=== PATIENT | female | born 1980 | race African-American/Black ===

== ENCOUNTER 2016-08-09 01:34 | Inpatient (IN) | payer BC, MEDICAID ==
[2016-08-08 15:04] LABS: Hematocrit 38 % (35-47); Hemoglobin 12.4 g/dl (12.0-16.0); Mean Corpuscular HGB Conc 33 g/dl (31-36); Mean Corpuscular Hemoglobin 26 pg (27-31); Mean Corpuscular Volume 80 fL (80-97); Mean Platelet Volume 9 um3 (7.4-10.4); Red Blood Count 4.72 10^6/ul (4.0-5.4); Red Cell Distribution Width 14 % (10.5-15); White Blood Count 10.1 10^3/ul (3.5-10.8)
[2016-08-09] MEDS ORDERED: ceFOXitin 2 GM IVPREMIX* 2 GM/50 ML BAG IVPB ONE (03:39)
[2016-08-09] MEDS ORDERED: Buffered Lidocaine 1% SYRIN* 3 ML/SYR SYRINGE INTRADERM ONE (06:00)
[2016-08-09] MEDS ORDERED: Sodium Citrate/Citric Acid* 15 ML UDC PO ONE ×2 (06:00→07:00)
[2016-08-09] MEDS ORDERED: Morphine PF AMP (0.5MG/ML)* 5 MG/10 ML AMP ONE (07:41)
[2016-08-09] MEDS ORDERED: OXYTOCIN* 10 UNITS/ML 1 ML VIAL ONE (07:41)
[2016-08-09] MEDS ORDERED: PROCHLORPERAZINE INJ 5 MG/ML 2 ML VIAL IV PRN (07:47)
[2016-08-09] MEDS ORDERED: oxyCODONE TAB* 5 MG TAB PO PRN ×2 (07:47→08:51)
[2016-08-09] MEDS ORDERED: Acetaminophen IV 1GM/100ML * 100 ML IVPB ONE (07:47)
[2016-08-09] MEDS ORDERED: fentaNYL* 50 MCG/ML 2 ML VIAL (100 MCG VIAL) IV PRN (07:47)
[2016-08-09] MEDS ORDERED: Phenylephrine IV* 40 MCG/ML 10 ML SYRINGE ONE (08:28)
[2016-08-09] MEDS ORDERED: Ondansetron INJ* 2 MG/ML VIAL ONE (08:44)
[2016-08-09] MEDS ORDERED: Dexamethasone IV* 4 MG/ML 1 ML (4 MG) ONE (08:44)
[2016-08-09] MEDS ORDERED: Scopolamine 1.5 mg* PATCH TRANSDERM PRN (08:51)
[2016-08-09] MEDS ORDERED: Nalbuphine* 20 MG/ML 1 ML VIAL IV PRN (08:51)
[2016-08-09] MEDS ORDERED: Ondansetron INJ* 2 MG/ML VIAL IV PRN (08:51)
[2016-08-09] MEDS ORDERED: Naloxone* 0.4 MG/ML 1 ML VIAL IV PRN (08:51)
[2016-08-09] MEDS ORDERED: Ketorolac INJ* 30 MG/ML 1 ML VIAL IV SCH (09:30)
[2016-08-09] MEDS ORDERED: Dibucaine 1% 28.35 GM TUBE PR PRN (09:35)
[2016-08-09] MEDS ORDERED: Acetaminophen TAB* 325 MG PO PRN (09:35)
[2016-08-09] MEDS ORDERED: Witch Hazel PAD* JAR TOPICAL PRN (09:35)
[2016-08-09] MEDS ORDERED: Glycerin ADULT SUPP PR PRN (09:35)
[2016-08-09] MEDS ORDERED: Ibuprofen TAB* 600 MG PO PRN (09:35)
[2016-08-09] MEDS ORDERED: ceFOXitin(*) 1 GM in NS 0.9% 50 ML* 50 ML IVPB ONE (09:38)
[2016-08-09] MEDS: Simethicone CHEW TAB* 80 MG PO SCH ×3 (12:30→21:27)
[2016-08-09] MEDS: Docusate CAP* 100 MG PO SCH ×2 (14:01→21:28)
[2016-08-09] MEDS: oxyCODONE/Acetamin 5/325 MG* TAB PO PRN ×2 (14:58→22:34)
[2016-08-09] MEDS: Ketorolac INJ* 30 MG/ML 1 ML VIAL IV SCH (18:56)
[2016-08-09] MEDS: Acetaminophen TAB* 325 MG PO SCH (18:57)
[2016-08-10] MEDS: Acetaminophen TAB* 325 MG PO SCH (02:46)
[2016-08-10] MEDS: Ketorolac INJ* 30 MG/ML 1 ML VIAL IV SCH (02:47)
[2016-08-10 06:51] LABS: Hematocrit 33 % (35-47); Hemoglobin 10.9 g/dl (12.0-16.0); Mean Corpuscular HGB Conc 33 g/dl (31-36); Mean Corpuscular Hemoglobin 26 pg (27-31); Mean Corpuscular Volume 80 fL (80-97); Mean Platelet Volume 9 um3 (7.4-10.4); Red Blood Count 4.15 10^6/ul (4.0-5.4); Red Cell Distribution Width 14 % (10.5-15); White Blood Count 15.5 10^3/ul (3.5-10.8)
[2016-08-10] MEDS: oxyCODONE/Acetamin 5/325 MG* TAB PO PRN ×4 (08:00→20:47)
[2016-08-10] MEDS ORDERED: Ibuprofen TAB* 600 MG PO PRN (09:00)
[2016-08-10] MEDS ORDERED: Ferrous Gluconate TAB* 324 MG TAB PO SCH (09:00)
[2016-08-10] MEDS ORDERED: Acetaminophen TAB* 325 MG PO PRN (09:00)
[2016-08-10] MEDS: Docusate CAP* 100 MG PO SCH ×3 (09:11→20:47)
[2016-08-10] MEDS: Simethicone CHEW TAB* 80 MG PO SCH ×4 (09:11→20:47)
[2016-08-10] MEDS: Levothyroxine TAB* 25 MCG TAB PO SCH (11:00)
[2016-08-10] MEDS: Ibuprofen TAB* 600 MG PO SCH ×2 (15:06→20:47)
[2016-08-10] MEDS: Zolpidem TAB* 5 MG PO PRN (22:23)
[2016-08-11] MEDS: oxyCODONE/Acetamin 5/325 MG* TAB PO PRN ×8 (02:19→18:04)
[2016-08-11] MEDS: Ibuprofen TAB* 600 MG PO SCH ×4 (03:15→20:59)
[2016-08-11] MEDS: Levothyroxine TAB* 25 MCG TAB PO SCH (06:20)
[2016-08-11] MEDS: Docusate CAP* 100 MG PO SCH ×3 (09:11→20:59)
[2016-08-11] MEDS: Simethicone CHEW TAB* 80 MG PO SCH ×4 (09:12→20:59)
--- NOTE | 2016-08-11 21:53 | OP ---
CC: Amna Blancas MD OPERATIVE REPORT: DATE OF OPERATION: 08/09/16 DATE OF : 82 SURGEON: Derrell Eli MD PREPARATOR: Amna Blancas MD ANESTHESIA: Spinal. PRE-OP DIAGNOSES: 1. at 39 weeks. 2. Morbid obesity with a BMI of 40. 3. macrosomia. POST-OP DIAGNOSES: 1. at 39 weeks. 2. Morbid obesity with a BMI of 40. 3. macrosomia. OPERATIVE PROCEDURE: Primary low transverse section with vacuum assistance of delivery of the head. ESTIMATED BLOOD LOSS: 400 cc. SPECIMEN: Sent to pathology was cord blood. IV FLUID: She received 3500 cc of IV crystalloid fluid. URINE OUTPUT: Clear. FINDINGS: Delivery of a viable male infant over clear fluid with a nuchal cord x1 weighing 8 pounds 11 ounces with 's of 8 and 9. The placenta was within normal limits with 3-vessel cord noted. The uterus, adnexa, bowel and bladder were all within normal limits. There were no complications. DESCRIPTION OF PROCEDURE: The patient was taken to the operating room where she was identified. Jesus muller was placed on the operating table where a spinal anesthetic was obtained without difficulty. She was then placed in the supine position with a leftward tilt, prepped and draped in a normal sterile fashion. A Pfannenstiel skin incision was made with a knife and carried through to the underlying l emperatriz of fascia. The fascia was then nicked in the midline and extended laterally with curved Christianson s cissors. The fascia was then grasped superiorly and inferiorly with Monserrat clamps and dissected off sharply from the rectum muscle. The rectus muscle was then in the midline bluntly. Kristel toneum was identified, grasped with pickups, entered sharply with Metzenbaum scissors, extended supe riorly and inferiorly sharply. At this point, a [place] retractor was inserted into the patient's abdomen and we then proceeded to make an incision at the lower uterine segment. This was extended laterally with bandage scissors. The amniotic sac was ruptured. The infant's head was then grasped , brought up to the incision and vacuum was applied to the 's head and we were able to deliver the baby's head atraumatically. Nuchal cord x1 was reduced. The rest of the infant's body was the n delivered. The cord was clamped and cut, and the was handed off to the [facility] n. Cord bloods were obtained. The placenta was removed manually. The uterus was then exteriorized . The uterus was then cleared of all clots and debris using moist laparotomy sponges. The uterine incision was then closed in situ using 0 Polysorb suture in a running locked fashion with a second i mbricating layer of 0 Polysorb suture, with good hemostasis noted. The patient's abdomen was irriga tj with normal saline. This was suctioned. The gutters were then cleared of all clots and debris using moist laparotomy sponges. The sponges were removed from the patient's abdomen. The [place] retractor was removed from the patient's abdomen, and at this point, the peritoneum was then closed using 3-0 Polysorb sutures. The fascia was closed using 0 Polysorb suture in a running fashion, an d the Esequiel's layer were closed using 3-0 Polysorb suture with interrupted stitches, and the skin w as closed with 4-0 Monocryl stitch subcuticularly. The patient tolerated the procedure well. Spong e, lap, needle counts were correct x2. She was then transferred to recovery room area in stable con dition. [id number]/[facility] #: [id number]
[2016-08-11] MEDS: Zolpidem TAB* 5 MG PO PRN (23:11)
[2016-08-12] MEDS: Ibuprofen TAB* 600 MG PO SCH ×2 (03:03→08:13)
[2016-08-12] MEDS: oxyCODONE/Acetamin 5/325 MG* TAB PO PRN (03:05)
[2016-08-12] MEDS: Levothyroxine TAB* 25 MCG TAB PO SCH (06:26)
[2016-08-12 07:33] VITALS: BP 133/75
[2016-08-12] MEDS: Docusate CAP* 100 MG PO SCH (08:13)
[2016-08-12] MEDS: Simethicone CHEW TAB* 80 MG PO SCH (08:13)
[2016-08-12] MEDS ORDERED: Scopolomine PATCH Remove* 1 NOTE MISC PATCH OFF PRN (08:51)
== END 2016-08-12 10:10 | disposition home or self-care (01) | DRG 540 ==
LOC: MCHOB 01:34 → UNDOADMIN 01:34 → MCHOB 06:00
PROVIDERS: ADMIT Obstetrics & Gynecology; ATTEND Obstetrics & Gynecology
PROC: 10D00Z1 Extraction of Products of Conception, Low, Open Approach (ICD-10-PCS; principal; 2016-08-09 07:45)
DX: O36.63X0 Maternal care for excessive fetal growth, third trimester, not applicable or unspecified (principal); Z68.41 Body mass index [BMI] 40.0-44.9, adult; O99.214 Obesity complicating childbirth; E66.01 Morbid (severe) obesity due to excess calories; O69.9XX0 Labor and delivery complicated by cord complication, unspecified, not applicable or unspecified; Z3A.39 39 weeks gestation of pregnancy; Z37.0 Single live birth
CPT/HCPCS: 36415; 85025; 86850; 86900; 86901; A9270-GY; J0694; J1100; J1885; J2405; J2590

== ENCOUNTER 2016-08-15 19:13 | Emergency (ER) | payer BC, MEDICAID ==
[2016-08-15 21:15] LABS: Hematocrit 33 % (35-47); Hemoglobin 10.8 g/dl (12.0-16.0); Mean Corpuscular HGB Conc 33 g/dl (31-36); Mean Corpuscular Hemoglobin 26 pg (27-31); Mean Corpuscular Volume 80 fL (80-97); Mean Platelet Volume 8 um3 (7.4-10.4); Red Blood Count 4.14 10^6/ul (4.0-5.4); Red Cell Distribution Width 14 % (10.5-15); White Blood Count 7.9 10^3/ul (3.5-10.8)
[2016-08-15 21:33] LABS: Albumin 3.1 g/dL (3.2-5.2); BUN/Creatinine Ratio 10.4 (8-20); Calcium 8.4 mg/dL (8.6-10.3); EGFR African American 128.8 (>60); EGFR Non-African American 100.2 (>60); Globulin 3.2 g/dL (2-4); Potassium 3.9 mmol/L (3.5-5.0); Total Bilirubin 0.8 mg/dL (0.2-1.0); Total Protein 6.3 g/dL (6.4-8.9)
[2016-08-15] MEDS ORDERED: Iohexol 350* (CONTRAST) 500 ML MDV IV ONE (21:37)
--- NOTE | 2016-08-15 22:25 | RAD ---
INDICATION: Shortness of breath COMPARISON: Multiple previous CTA of the chest, most recently dated July 20, 2008 TECHNIQUE: Axial source images were acquired following the administration of 86 mL Omnipaque [address] angiographic technique. Coronal and sagittal reconstructed images were constructed and reviewed. FINDINGS: There there are no filling defects in the pulmonary arteries to indicate acute pulmonary embolic disease. There are no focal infiltrates or effusions. There are no pulmonary parenchymal masses. The heart is normal in size. There is no evidence of pericardial effusion. There is no evidence of aortic aneurysm or dissection. There is no mediastinal, hilar, or axillary lymphadenopathy. The visualized osseous structures appear normal. Limited views of the upper abdomen show no abnormalities. IMPRESSION: Normal CT of the chest without evidence of pulmonary embolism.
[2016-08-15 22:32] VITALS: BP 140/79
[2016-08-15 22:44] LABS: Urine Bacteria Absent (Absent); Urine Bilirubin Negative (Negative); Urine Glucose Negative (Negative); Urine Nitrite Negative (Negative)
--- NOTE | 2016-08-15 23:32 | ED ---
Kathie Celis Erika, scribed for Jm Blancas MD on 08/15/16 at 2112 . Shortness of Breath - HPI Summary HPI Summary: Patient is a 36-year-old female presenting to the ED with a CC of SOB. Patient reports she had a 6 days ago. A few days ago, patient developed chest congestion. Today, she has had increased SOB. Patient states SOB is present even at rest. Associated symptoms include bilateral pedal edema. Patient denies fever. A0. - History of Current Complaint Chief Complaint: EDShortnessOfBreath Time Seen by Provider: 08/15/16 20:32 Hx Obtained From: Patient Onset/Duration: Gradual Onset, Lasting Days, Worse Since - Today Timing: Constant Current Severity: Moderate Dyspnea At: Rest Alleviating Factors: Nothing Associated Signs & Symptoms: Calf Pain/Swelling - Allergy/Home Medications Allergies/Adverse Reactions: Allergies Allergy/AdvReac Type Severity Reaction Status Date / Time No Known Allergies Allergy Verified 01/01/16 12:54 PMH/Surg Hx/FS Hx/Imm Hx Endocrine/Hematology History: Reports: Hx Thyroid Disease - hypothyroid Respiratory History: Reports: Hx Asthma Psychiatric History: Reports: Hx Anxiety - Surgical History Surgery Procedure, Year, and Place: August 2016 Infectious Disease History: No Infectious Disease History: Denies: Traveled Outside the [place] in Last 30 Days - Family History Family History: Denies FHx gallbladder disease - Social History Lives: With Family Alcohol Use: None Hx Substance Use: No Substance Use Type: Reports: None Hx Tobacco Use: Yes Smoking Status (MU): Former Smoker Review of Systems Negative: Fever Cardiovascular: Other - chest congestion Positive: Shortness Of Breath Positive: Edema - bilateral pedal All Other Systems Reviewed And Are Negative: Yes Physical Exam Triage Information Reviewed: Yes Vital Signs On Initial Exam: Initial Vitals Temp Pulse Resp BP Pulse Ox 98.6 F 65 16 158/78 100 08/15/16 19:14 08/15/16 19:14 08/15/16 19:14 08/15/16 19:14 08/15/16 19:14 Vital Signs Reviewed: Yes Appearance: Positive: Well-Appearing, No Pain Distress, Obese Skin: Positive: Warm, Skin Color Reflects Adequate Perfusion, Dry Head/Face: Positive: Normal Head/Face Inspection Eyes: Positive: Normal ENT: Positive: Normal ENT inspection Neck: Positive: Supple, Nontender Respiratory/Lung Sounds: Positive: Clear to Auscultation, Breath Sounds Present Cardiovascular: Positive: RRR Abdomen Description: Positive: Nontender, Soft Bowel Sounds: Positive: Present Musculoskeletal: Positive: Other - Bilateral pedal edema Neurological: Positive: Normal Psychiatric: Positive: Affect/Mood Appropriate - West Coma Scale Coma Scale Total: 15 Diagnostics - Vital Signs Vital Signs Temp Pulse Resp BP Pulse Ox 08/15/16 19:39 60 15 155/87 100 08/15/16 19:17 98.6 F 65 16 158/78 100 08/15/16 19:14 98.6 F 65 16 158/78 100 - Laboratory Lab Results: Lab Results 08/15/16 08/15/16 08/15/16 Range/Units 21:03 21:03 22:30 WBC 7.9 (3.5-10.8) 10^3/ul RBC 4.14 (4.0-5.4) 10^6/ul Hgb 10.8 L (12.0-16.0) g/dl Hct 33 L (35-47) % MCV 80 (80-97) fL MCH 26 L (27-31) pg MCHC 33 (31-36) g/dl RDW 14 (10.5-15) % Plt Count 294 (150-450) 10^3/ul MPV 8 (7.4-10.4) um3 Neut % (Auto) 61.1 (38-83) % Lymph % (Auto) 28.6 (25-47) % [place] % (Auto) 7.8 (1-9) % Eos % (Auto) 1.9 (0-6) % Baso % (Auto) 0.6 (0-2) % Absolute Neuts (auto) 4.8 (1.5-7.7) 10^3/ul Absolute Lymphs (auto) 2.3 (1.0-4.8) 10^3/ul Absolute Monos (auto) 0.6 (0-0.8) 10^3/ul Absolute Eos (auto) 0.2 (0-0.6) 10^3/ul Absolute Basos (auto) 0 (0-0.2) 10^3/ul Absolute Nucleated RBC 0 10^3/ul Nucleated RBC % 0 Sodium 138 (133-145) mmol/L Potassium 3.9 (3.5-5.0) mmol/L Chloride 107 (101-111) mmol/L Carbon Dioxide 24 (22-32) mmol/L Anion Gap 7 (2-11) mmol/L BUN 7 (6-24) mg/dL Creatinine 0.67 (0.51-0.95) mg/dL Est GFR ( Amer) 128.8 (>60) Est GFR (Non-Af Amer) 100.2 (>60) BUN/Creatinine Ratio 10.4 (8-20) Glucose 79 (70-100) mg/dL Calcium 8.4 L (8.6-10.3) mg/dL Total Bilirubin 0.80 (0.2-1.0) mg/dL AST 18 (13-39) U/L ALT 17 (7-52) U/L Alkaline Phosphatase 151 H (34-104) U/L Total Protein 6.3 L (6.4-8.9) g/dL Albumin 3.1 L (3.2-5.2) g/dL Globulin 3.2 (2-4) g/dL Albumin/Globulin Ratio 1.0 (1-3) Urine Color Yellow Urine Appearance Clear Urine pH 6.0 (5-9) Ur Specific [place] 1.036 H (1.010-1.030) Urine Protein Negative (Negative) Urine Ketones Negative (Negative) Urine Blood 3+ H (Negative) Urine Nitrate Negative (Negative) Urine Bilirubin Negative (Negative) Urine Urobilinogen Negative (Negative) Ur Leukocyte Esterase 3+ H (Negative) Urine WBC (Auto) 3+(>20/hpf) H (Absent) Urine RBC (Auto) 3+(>10/hpf) H (Absent) Ur Squamous Epith Cells Present H (Absent) Ur Transition Epith Cell Present H (Absent) Urine Bacteria Absent (Absent) Urine Glucose Negative (Negative) Result Diagrams: 08/15/16 21:03 08/15/16 21:03 Lab Statement: Any lab studies that have been ordered have been reviewed, and results considered in the medical decision making process. - CT CTA Chest CT Interpretation Completed By: Radiologist - IMPRESSION: Normal CT of the chest without evidence of pulmonary embolism. Re-Evaluation - Re-Evaluation First Eval Re-Evaluation Time: 22:51 Comment: Discussed lab and imaging results with patient. Will be road tested Course/Dx - Course Course Of Treatment: Ms. Hung presented with exertional SOB 6 days post C- Section. She doesn't have a PE or pneumonia or eclampsia although she has a little peripheral edema. I'm not sure about her SOB but she is anemic and with the extra fluid and recent delivery that may explain it all. - Diagnoses Provider Diagnoses: Dyspnea, Peripheral edema Discharge - Discharge Plan Condition: Stable Disposition: HOME Patient Education Materials: Anemia (ED), Dyspnea (ED) Referrals: [facility] [Outside] Additional Instructions: Please follow up with your PCP. The documentation as recorded by the Kathie mathews Erika accurately reflects the service I personally performed and the decisions made by me, Jm Blancas MD.
== END 2016-08-15 23:36 | disposition home or self-care (01) ==
LOC: ED 19:13
DX: R06.00 Dyspnea, unspecified (principal); R60.9 Edema, unspecified; Z87.891 Personal history of nicotine dependence; E03.9 Hypothyroidism, unspecified; J45.909 Unspecified asthma, uncomplicated; F41.9 Anxiety disorder, unspecified
CPT/HCPCS: 36415; 71275; 80053; 81003; 81015; 85025; 87086; 99282; 99283; Q9967

== ENCOUNTER 2017-06-17 09:26 | Emergency (ER) | payer BC, MEDICAID, OTHER ==
[2017-06-17] MEDS ORDERED: NS 0.9% 1000 ML* 1,000 ML IV ONE (11:11)
[2017-06-17 11:25] LABS: ABS Basophils 0.2 10^3/ul (0-0.2); ABS Eosinophils 0.1 10^3/ul (0-0.6); ABS Monocytes 0.6 10^3/ul (0-0.8); ABS Neutrophils 9.2 10^3/ul (1.5-7.7); ABS Nucleated RBC 0 10^3/ul; Eosinophil % 0.6 % (0-6); Hematocrit 40 % (35-47); Hemoglobin 12.7 g/dl (12.0-16.0); Lymphocyte % 16.4 % (25-47); Mean Corpuscular HGB Conc 32 g/dl (31-36); Mean Corpuscular Hemoglobin 25 pg (27-31); Mean Corpuscular Volume 78 fL (80-97); Mean Platelet Volume 9 um3 (7.4-10.4); Nucleated Red Blood Cells % 0.1; Platelet Count 278 10^3/ul (150-450); Red Blood Count 5.11 10^6/ul (4.0-5.4); Red Cell Distribution Width 15 % (10.5-15); White Blood Count 12.1 10^3/ul (3.5-10.8)
[2017-06-17 11:39] LABS: EGFR Non-African American 86.6 (>60)
--- NOTE | 2017-06-17 11:50 | RAD ---
INDICATION: Productive cough. History of tobacco use. COMPARISON: August 15, 2016 CT. August 24, 2008 chest radiograph. TECHNIQUE: Dual energy PA and routine lateral views of the chest were obtained. REPORT: Elevated lung volumes. Clear lungs and pleural spaces. Negative for pneumothorax. The heart, pulmonary vasculature, and mediastinal contours are unremarkable. Gallbladder fossa level surgical clips. Unremarkable osseous structures and soft tissue contours. IMPRESSION: No evidence for pneumonia. Elevated lung volumes suggest potential obstructive lung disease..
[2017-06-17 13:38] VITALS: BP 120/60
--- NOTE | 2017-06-18 10:48 | ED ---
Yuliana Celis Edward, scribed for Lalo Kendrick MD on 06/17/17 at 1033 . Respiratory - HPI Summary HPI Summary: 36 y/o female presents to the ED c/o chest congestion and a productive cough for around 4 days, not alleviated by anything. Associated sx: body aches, chills , subjective fever. Denies sick contact. - History of Current Complaint Chief Complaint: EDFluSymptoms Stated Complaint: SOB/CHEST TIGHTNESS Time Seen by Provider: 06/17/17 10:20 Onset/Duration: Lasting Days Pain Intensity: 6 Character: Cough (Productive) Associated Signs and Symptoms: Fever, Chest Pain - congestion, Chills, Nasal Congestion - rhinorrhea - Allergy/Home Medications Allergies/Adverse Reactions: Allergies Allergy/AdvReac Type Severity Reaction Status Date / Time No Known Allergies Allergy Verified 01/01/16 12:54 PMH/Surg Hx/FS Hx/Imm Hx Previously Healthy: No Endocrine/Hematology History: Reports: Hx Thyroid Disease - hypothyroid Respiratory History: Reports: Hx Asthma Psychiatric History: Reports: Hx Anxiety - Surgical History Surgery Procedure, Year, and Place: August 2016 Infectious Disease History: No Infectious Disease History: Denies: Traveled Outside the [place] in Last 30 Days - Family History Family History: Denies FHx gallbladder disease - Social History Alcohol Use: None Hx Substance Use: No Substance Use Type: Reports: None Hx Tobacco Use: Yes Smoking Status (MU): Former Smoker Review of Systems Positive: Fever - hudson, Chills Eyes: Negative Positive: Nasal Discharge - rhinorrhea Positive: Chest Pain - chest congestion Positive: Cough Positive: Vomiting Genitourinary: Negative Positive: Myalgia - body aches Skin: Negative Neurological: Negative Psychological: Normal All Other Systems Reviewed And Are Negative: Yes Physical Exam - Summary Physical Exam Summary: VITAL SIGNS: Reviewed. GENERAL: Patient is a well-developed and nourished female who is lying comfortable in the stretcher. Patient is not in any acute respiratory distress. HEAD AND FACE: No signs of trauma. No ecchymosis, hematomas or skull depressions. No sinus tenderness. EYES: PERRLA, EOMI x 2, No injected conjunctiva, no nystagmus. EARS: Hearing grossly intact. Ear canals and tympanic membranes are within normal limits. ENT: Pharyngeal erythema. Runny nose. NECK: Supple, trachea is midline, no adenopathy, no JVD, no carotid bruit, no c- spine tenderness, neck with full ROM. CHEST: Symmetric, no tenderness at palpation LUNGS: Clear to auscultation bilaterally. No wheezing or crackles. CVS: Regular rate and rhythm, S1 and S2 present, no murmurs or gallops appreciated. ABDOMEN: Soft, non-tender. No signs of distention. No rebound no guarding, and no masses palpated. Bowel sounds are normal. EXTREMITIES: FROM in all major joints, no edema, no cyanosis or clubbing. NEURO: Alert and oriented x 3. No acute neurological deficits. Speech is normal and follows commands. SKIN: Dry and warm Triage Information Reviewed: Yes Vital Signs On Initial Exam: Initial Vitals Temp Pulse Resp BP Pulse Ox 97.0 F 98 16 131/80 98 06/17/17 09:30 06/17/17 09:30 06/17/17 09:30 06/17/17 09:30 06/17/17 09:30 Vital Signs Reviewed: Yes Diagnostics - Vital Signs Vital Signs Temp Pulse Resp BP Pulse Ox 06/17/17 09:30 97.0 F 98 16 131/80 98 - Laboratory Lab Results: Lab Results 06/17/17 06/17/17 06/17/17 Range/Units 10:40 11:19 11:19 WBC 12.1 H (3.5-10.8) 10^3/ul RBC 5.11 (4.0-5.4) 10^6/ul Hgb 12.7 (12.0-16.0) g/dl Hct 40 (35-47) % MCV 78 L (80-97) fL MCH 25 L (27-31) pg MCHC 32 (31-36) g/dl RDW 15 (10.5-15) % Plt Count 278 (150-450) 10^3/ul MPV 9 (7.4-10.4) um3 Neut % (Auto) 76.0 (38-83) % Lymph % (Auto) 16.4 L (25-47) % [place] % (Auto) 5.3 (1-9) % Eos % (Auto) 0.6 (0-6) % Baso % (Auto) 1.7 (0-2) % Absolute Neuts (auto) 9.2 H (1.5-7.7) 10^3/ul Absolute Lymphs (auto) 2.0 (1.0-4.8) 10^3/ul Absolute Monos (auto) 0.6 (0-0.8) 10^3/ul Absolute Eos (auto) 0.1 (0-0.6) 10^3/ul Absolute Basos (auto) 0.2 (0-0.2) 10^3/ul Absolute Nucleated RBC 0 10^3/ul Nucleated RBC % 0.1 Sodium 135 (133-145) mmol/L Potassium 4.5 (3.5-5.0) mmol/L Chloride 105 (101-111) mmol/L Carbon Dioxide 25 (22-32) mmol/L Anion Gap 5 (2-11) mmol/L BUN 8 (6-24) mg/dL Creatinine 0.76 (0.51-0.95) mg/dL Est GFR ( Amer) 111.4 (>60) Est GFR (Non-Af Amer) 86.6 (>60) BUN/Creatinine Ratio 10.5 (8-20) Glucose 95 (70-100) mg/dL Calcium 8.7 (8.6-10.3) mg/dL Total Bilirubin 1.20 H (0.2-1.0) mg/dL AST 17 (13-39) U/L ALT 15 (7-52) U/L Alkaline Phosphatase 55 (34-104) U/L C-Reactive Protein 20.41 H (< 5.00) mg/L Total Protein 7.1 (6.4-8.9) g/dL Albumin 3.9 (3.2-5.2) g/dL Globulin 3.2 (2-4) g/dL Albumin/Globulin Ratio 1.2 (1-3) Influenza A (Rapid) Negative (Negative) Influenza B (Rapid) Negative (Negative) Group A Strep Rapid (Negative) 06/17/17 Range/Units 12:52 WBC (3.5-10.8) 10^3/ul RBC (4.0-5.4) 10^6/ul Hgb (12.0-16.0) g/dl Hct (35-47) % MCV (80-97) fL MCH (27-31) pg MCHC (31-36) g/dl RDW (10.5-15) % Plt Count (150-450) 10^3/ul MPV (7.4-10.4) um3 Neut % (Auto) (38-83) % Lymph % (Auto) (25-47) % [place] % (Auto) (1-9) % Eos % (Auto) (0-6) % Baso % (Auto) (0-2) % Absolute Neuts (auto) (1.5-7.7) 10^3/ul Absolute Lymphs (auto) (1.0-4.8) 10^3/ul Absolute Monos (auto) (0-0.8) 10^3/ul Absolute Eos (auto) (0-0.6) 10^3/ul Absolute Basos (auto) (0-0.2) 10^3/ul Absolute Nucleated RBC 10^3/ul Nucleated RBC % Sodium (133-145) mmol/L Potassium (3.5-5.0) mmol/L Chloride (101-111) mmol/L Carbon Dioxide (22-32) mmol/L Anion Gap (2-11) mmol/L BUN (6-24) mg/dL Creatinine (0.51-0.95) mg/dL Est GFR ( Amer) (>60) Est GFR (Non-Af Amer) (>60) BUN/Creatinine Ratio (8-20) Glucose (70-100) mg/dL Calcium (8.6-10.3) mg/dL Total Bilirubin (0.2-1.0) mg/dL AST (13-39) U/L ALT (7-52) U/L Alkaline Phosphatase (34-104) U/L C-Reactive Protein (< 5.00) mg/L Total Protein (6.4-8.9) g/dL Albumin (3.2-5.2) g/dL Globulin (2-4) g/dL Albumin/Globulin Ratio (1-3) Influenza A (Rapid) (Negative) Influenza B (Rapid) (Negative) Group A Strep Rapid Negative (Negative) Result Diagrams: 06/17/17 11:19 06/17/17 11:19 Lab Statement: Any lab studies that have been ordered have been reviewed, and results considered in the medical decision making process. - Radiology CXR Xray Interpretation: Positive (See Comments) - No evidence for pneumonia. Elevated lung volumes suggest potential obstructive lung disease.. Radiology Interpretation Completed By: Radiologist - ED PHYSICIAN REVIEWS AND AGREES Disposition - Course Assessment/Plan: 36 y/o female presents to the ED c/o chest congestion and a productive cough for around 4 days, not alleviated by anything. Associated sx: body aches, chills, subjective fever. Denies sick contact. CXR SHOWS No evidence for pneumonia. Elevated lung volumes suggest potential obstructive lung disease. Test results without significant abnormalities except wbc 12.1, crp 20.4. influenza A&B and strep negative. Pt has a productive cough; therefore I think the pt is dealing with airway pna vs bronchitis. Therefore the pt was given azithromyacin and hydrated orally.At this time the pt has no N/ V, feels better and will be d/c home with f/u pcp. Pt instructed to return for worsening sx. I discussed all the findings and test results with the patient. Patient was instructed to return to the emergency room immediately if any of the symptoms return or worsens. Plan of care was discussed with the patient and understands and agrees. All questions were answered at patient satisfaction. There were no further complaints or concerns. Lung exam before discharge: CTA B /L. Good air exchange. No wheezing or crackles heard. CVS: S1 and S2 present. No murmurs appreciated. Patient is alert and oriented x 3. Patient is hemodynamically stable. Patient will be discharged home with follow up PCP in the next 2-3 days - Diagnoses Provider Diagnoses: Bronchitis Discharge - Discharge Plan Condition: Stable Disposition: HOME Prescriptions: Azithromycin TAB* [Zithromax TAB (Z-GADIEL) 250 mg #6 tabs] 2 tab PO .TODAY, THEN 1 DAILY #1 gadiel Patient Education Materials: Acute Bronchitis (ED) Forms: *Work Release Referrals: Franko Izaguirre MD [Primary Care Provider] - 4 Days (PLEASE F/U IN 3-5 DAYS) The documentation as recorded by the Yuliana mathews Edward accurately reflects the service I personally performed and the decisions made by me, Lalo Kendrick MD.
== END 2017-06-17 13:36 | disposition home or self-care (01) ==
LOC: ED 09:26
DX: J40 Bronchitis, not specified as acute or chronic (principal); R07.9 Chest pain, unspecified; R50.9 Fever, unspecified; R05 Cough; R11.10 Vomiting, unspecified; Z87.891 Personal history of nicotine dependence
CPT/HCPCS: 36415; 71046; 80053; 85025; 86140; 87502; 87651; 96360; 99283

== ENCOUNTER 2021-10-28 06:06 | Inpatient (IN) ==
[~2021-10-28 06:06] MED LIST: Buffered Lidocaine 1% SYRIN 1 ml INTRADERM ONE; Lactated Ringers 1000 ml BAG 1,000 ML IV SCH
[2021-10-28] MEDS ORDERED: ceFOXitin 2 GM PREMIX 50 ML IVPB ONE (07:00)
[2021-10-28 07:32] LABS: Hematocrit 32 % (35-47); Hemoglobin 10.3 g/dL (12.0-16.0); Mean Corpuscular HGB Conc 32 g/dL (31-36); Mean Corpuscular Hemoglobin 24 pg (27-31); Mean Corpuscular Volume 74 fL (80-97); Mean Platelet Volume 8.1 fL (7.4-10.4); Platelet Count 229 10^3/uL (150-450); Red Blood Count 4.36 10^6 /uL (3.70-4.87); Red Cell Distribution Width 23 % (10-15)
[2021-10-28] MEDS ORDERED: Phenylephrine IV 10 MG/ML 1 ml VIAL ONE (07:44)
[2021-10-28] MEDS ORDERED: fentaNYL 100 mcg/2 ml 50 MCG/ML VIAL ONE (07:46)
[2021-10-28] MEDS ORDERED: Morphine PF AMP (0.5MG/ML) 5 MG/10 ML AMP ONE (07:46)
[2021-10-28] MEDS ORDERED: Oxytocin 10 UNITS/ML 1 ML VIAL ONE (08:50)
[2021-10-28] MEDS ORDERED: Sterile Water for Inj 10 ML ONE (08:50)
[2021-10-28 09:10] LABS: Urine Appearance Clear; Urine Bilirubin Negative (Negative); Urine Blood Negative (Negative); Urine Color Straw; Urine Glucose Negative (Negative); Urine Ketones Negative (Negative); Urine Nitrite Negative (Negative); Urine Protein Negative (Negative); Urine Specific Gravity 1.004 (1.002-1.030); Urine Urobilinogen Negative (Negative)
[2021-10-28] MEDS ORDERED: Prochlorperazine 5 mg/ml 2 ml VIAL (10 mg) IV PRN (09:59)
[2021-10-28] MEDS ORDERED: Naloxone 0.4 mg VIAL 0.4 mg/ml 1 ml VIAL IV PRN (09:59)
[2021-10-28] MEDS ORDERED: Witch Hazel PAD JAR TOPICAL PRN (12:06)
[2021-10-28] MEDS ORDERED: Glycerin ADULT 2.4 gm SUPP PR PRN (12:06)
[2021-10-28] MEDS ORDERED: Lactated Ringers 1000 ml BAG 1,000 ML IV SCH (13:00)
[2021-10-28 13:34] LABS: Urine Benzodiazepine Screen None Detected (None Detect); Urine Opiates Screen None Detected (None Detect)
[2021-10-28 17:19] LABS: Urine Benzodiazepine Screen None Detected (None Detect); Urine Opiates Screen None Detected (None Detect)
[2021-10-28] MEDS ORDERED: Albuterol HFA INHALER 8 gm MDI INH PRN (21:16)
[2021-10-29 07:23] LABS: ABS Basophils 0.1 10^3/ul (0-0.2); ABS Eosinophils 0.1 10^3/ul (0-0.6); ABS Lymphocytes 1.3 10^3/ul (1.0-4.8); ABS Monocytes 0.8 10^3/ul (0-0.8); Eosinophil % 0.5 %; Hematocrit 28 % (35-47); Hemoglobin 9.2 g/dL (12.0-16.0); Lymphocyte % 9.1 %; Mean Corpuscular HGB Conc 33 g/dL (31-36); Mean Corpuscular Hemoglobin 24 pg (27-31); Mean Corpuscular Volume 75 fL (80-97); Platelet Count 206 10^3/uL (150-450); Red Blood Count 3.76 10^6 /uL (3.70-4.87); Red Cell Distribution Width 22 % (10-15); White Blood Count 14.2 10^3/uL (3.5-10.8)
[2021-10-30 09:09] VITALS: BP 129/69
== END 2021-10-30 12:20 | disposition home or self-care (01) | DRG 540 ==
LOC: MCHOB 06:06
PROVIDERS: ADMIT Obstetrics & Gynecology; ATTEND Obstetrics & Gynecology